=== PATIENT | male | born 1935 | race Two or more races ===

== ENCOUNTER 2019-05-23 21:53 | Emergency (ER) | payer OTHER ==
[~2019-05-23] VITALS: Ht 180.3 cm; Wt 77.1 kg
[2019-05-23 21:59] VITALS: Ht 180.3 cm; Wt 77.1 kg
[2019-05-24 03:25] VITALS: BP 117/60
== END 2019-05-24 03:26 ==
LOC: ED 21:53
DX: S01.111A Laceration without foreign body of right eyelid and periocular area, initial encounter (principal); W18.30XA Fall on same level, unspecified, initial encounter; Y93.89 Activity, other specified; Y92.89 Other specified places as the place of occurrence of the external cause; Y99.8 Other external cause status